=== PATIENT | female | born 1980 | race Two or more races ===

== ENCOUNTER 2018-03-24 08:41 | Emergency (ER) | payer OTHER ==
[~2018-03-24] VITALS: Ht 160 cm; Wt 59.0 kg
[2018-03-24 09:05] VITALS: BP 127/74
[2018-03-24] MEDS ORDERED: ACETAMINOPHEN/CODEINE#3 (300/30mg) TAB PO ONE (09:45)
== END 2018-03-24 16:09 | disposition left against medical advice (07) ==
LOC: ER 08:41
DX: S43.102A Unspecified dislocation of left acromioclavicular joint, initial encounter (principal); Z53.29 Procedure and treatment not carried out because of patient's decision for other reasons; V43.52XA Car driver injured in collision with other type car in traffic accident, initial encounter; Y93.89 Activity, other specified; Y99.8 Other external cause status; Y92.410 Unspecified street and highway as the place of occurrence of the external cause
CPT/HCPCS: 73000